=== PATIENT | male | born 1965 | race Caucasian/White ===

== ENCOUNTER 2017-03-21 00:44 | Inpatient (IN) | payer OTHER ==
[~2017-03-21] VITALS: Ht 172.7 cm; Wt 70.8 kg
[2017-03-21] VITALS (11 sets, daily range): BP systolic 126–155; BP diastolic 71–83; PULSE 62–90; RESP 16–22; TEMP 98.1–99.4; O2SAT 95–100
[2017-03-21] MEDS ORDERED: SODIUM CHLOR 0.9% 1000 ML INJ 1,000 ML IV ONE (01:45)
[2017-03-21 02:02] LABS: AUTOMATED NEUTROPHIL # 8.2 TH/MM3 (1.8-7.7); BASOPHIL % 0.3 % (0.0-2.0); EOSINOPHIL # 0.1 TH/MM3 (0-0.4); EOSINOPHIL % 0.7 % (0.0-4.0); HEMATOCRIT 41.9 % (39.0-51.0); HEMO FLAGS DIFF FINAL; LYMPH % 10.8 % (9.0-44.0); LYMPHOCYTE # 1.1 TH/MM3 (1.0-4.8); MEAN CELL VOLUME 88.9 FL (80.0-100.0); MEAN CORPUSCULAR HEMOGLOBIN 29.2 PG (27.0-34.0); MEAN CORPUSCULAR HGB CONC 32.8 % (32.0-36.0); MONO % 6.1 % (0.0-8.0); NEUT % 82.1 % (16.0-70.0); PLATELET COUNT 186 TH/MM3 (150-450); RED BLOOD COUNT 4.71 MIL/MM3 (4.50-5.90); RED CELL DISTRIBUTION WIDTH 13.8 % (11.6-17.2)
--- NOTE | 2017-03-21 02:05 | RADRPT ---
EXAM DATE/TIME: 03/21/2017 01:55 [facility] COMPARISON: No previous studies available for comparison. INDICATIONS : Syncope. Possible seizure. RADIATION DOSE: 40.22 CTDIvol (mGy) MEDICAL HISTORY : None SURGICAL HISTORY : None. ENCOUNTER: Initial ACUITY: 1 day PAIN SCALE: 0/10 LOCATION: cranial TECHNIQUE: Multiple contiguous axial images were obtained of the head. Using automated exposure control and adj ustment of the mA and/or kV according to patient size, radiation dose was kept as low as reasonably a chievable to obtain optimal diagnostic quality images. FINDINGS: There is no evidence for intracranial hemorrhage, mass effect, mass lesions, edema, or extra-axial fl uid collections. The visualized bony structures appear intact. The ventricles are normal size for t he patient's age. There are no signs of acute infarction for technique. CONCLUSION: Unremarkable study. Yifan Charles MD on March 21, 2017 at 2:02 Board Certified Radiologist. This report was verified electronically.
[2017-03-21 02:09] LABS: APTT (PATIENT) 22.4 SEC (24.3-30.1); PROTHROMBIN TIME - PATIENT 10.5 SEC (9.8-11.6)
[2017-03-21 02:16] LABS: ALT (GPT) 37 U/L (12-78); ANION GAP 12 MEQ/L (5-15); AST (GOT) 22 U/L (15-37); BICARBONATE 24.4 MEQ/L (21.0-32.0); BLOOD UREA NITROGEN 12 MG/DL (7-18); CHLORIDE 103 MEQ/L (98-107); GLOMERULAR FILTRATION RATE 81 ML/MIN (>89); MAGNESIUM 2.3 MG/DL (1.5-2.5); SODIUM (NA) 139 MEQ/L (136-145)
[2017-03-21 02:27] LABS: ALKALINE PHOSPHATASE 50 U/L (45-117); TOTAL BILIRUBIN ADULT 0.2 MG/DL (0.2-1.0)
[2017-03-21 02:31] LABS: CREATINE KINASE 92 U/L (39-308)
--- NOTE | 2017-03-21 02:31 | RADRPT ---
EXAM DATE/TIME: 03/21/2017 02:09 [facility] COMPARISON: No previous studies available for comparison. INDICATIONS : Cough and congestion. MEDICAL HISTORY : None. SURGICAL HISTORY : None. ENCOUNTER: Initial ACUITY: 1 day PAIN SCORE: 5/10 LOCATION: Bilateral chest FINDINGS: The lungs are clear without infiltrate, nodule, or mass. There is no appreciable pleural effusion fo r technique. Heart and mediastinum are unremarkable. CONCLUSION: No acute cardiopulmonary disease. Yifan Charles MD on March 21, 2017 at 2:29 Board Certified Radiologist. This report was verified electronically.
--- NOTE | 2017-03-21 02:49 | PD ---
HPI Chief Complaint: Seizure Time Seen by Provider: 01:34 Travel History International Travel<30 days: No Contact w/Intl Traveler<30days: No Traveled to known affect area: No History of Present Illness HPI The patient is a 51 year old male who presents to the [facility] emergency department with a history of being noted to have generalized clonic tonic seizure activity at 11:50 PM. The patient's significant other reports that she was awakened from sound sleep due to him making abnormal noises in the bed. When she tried to awaken him his eyes appear to be open and he was looking straight up but otherwise unresponsive and shaking. The patient was noted to have bleeding from his mouth and head that his lip. The patient denies having any loss of bowel or bladder control. The patient was confused when he became more awake and alert. He denies having any prior history of seizure activity. The significant other reports that it lasted for approximately 3 minutes. He denies being on any medications at home. He reports that he has a history of anxiety recently over the last 6 months. The patient denies any history of fever , cough, congestion, neck pain, chest pain, shortness of breath, abdominal pain , vomiting, diarrhea, urinary symptoms, or neurologic symptoms. [facility] Past Medical History Narrative Medical The patient's past medical history is significant for anxiety attacks intermittently reportedly for 6 months. He denies having a primary care physician. Medical History: Denies Significant Hx Immunizations Current: Yes Past Surgical History Narrative Surgical The patient's past surgical history is reportedly none. Surgical History: No Previous Surgery Social History Alcohol Use: Yes (3 x per week, 5 drinks.) Tobacco Use: No Substance Use: No Allergies-Medications (Allergen,Severity, Reaction): Coded Allergies: Latex (Verified Allergy, Intermediate, Rash, 01/31/12) Reported Meds & Prescriptions Reported Meds & Active Scripts Active No Active Prescriptions or Reported Medications Review of Systems Except as stated in HPI: all other systems reviewed are Neg General / Constitutional: No: Fever Eyes: No: Visual changes HENT: Positive: Other (bite tongue.), No: Headaches Cardiovascular: No: Chest Pain or Discomfort Respiratory: No: Shortness of Breath Gastrointestinal: No: Abdominal Pain Genitourinary: No: Dysuria Musculoskeletal: No: Pain Skin: No Rash Neurologic: Positive: Change in Mentation, Seizures, No: Weakness, Focal Abnormalities, Slurred Speech Psychiatric: Positive: Anxiety, No: Depression, Suicidal Ideations, Mood Disorder, Substance Abuse, Homicidal Ideation Endocrine: No: Polydipsia Hematologic/Lymphatic: No: Easy Bruising Physical Exam Narrative General: The patient is a well-developed well-nourished male, anxious appearing on examination. Head and Neck exam: Head is normocephalic atraumatic. Eyes: EOMI, pupils are equal round and reactive to light. Nose: Midline septum with pink mucous membranes Mouth: Dentition unremarkable. Moist mucus membranes. Posterior oropharynx is not erythematous. No tonsillar hypertrophy. Uvula midline. Airway patent. The patient on examination of the right lower lip is noted to have an area of abrasion and superficial laceration related to biting. Neck: No palpable lymphadenopathy. No nuchal rigidity. No thyromegaly. Cardiovascular: Regular rate and rhythm without murmurs, gallops, or rubs. Lungs: Clear to auscultation bilaterally. No wheezes, rhonchi, or rales. Abdomen: Soft, without tenderness to palpation in all 4 quadrants of the abdomen. No guarding, rebound, or rigidity. Normal bowel sounds are audible. No tenderness on palpation of McBurney's point Extremities: No clubbing, cyanosis, or edema. 2+ pulses in all 4 extremities. No calf tenderness on palpation. Back: No spinous process tenderness to palpation. No costovertebral angle tenderness to palpation. Neurologic Exam: Cranial nerves 2-12 were intact on exam. Strength is 5/5 in all 4 extremities. No sensory deficits noted. No tremulousness noted. Skin Exam: No rash noted. Data Data Last Documented VS Vital Signs Date Time Temp Pulse Resp B/P Pulse Ox O2 Delivery O2 Flow Rate FiO2 03/21/17 00:45 16 100 Room Air 03/21/17 00:45 98.3 81 132/74 Orders Electrocardiogram (03/21/17 01:40) Complete Blood Count With Diff (03/21/17 01:40) Comprehensive Metabolic Panel (03/21/17 01:40) Creatine Kinase (Cpk) (03/21/17 01:40) Ckmb (Isoenzyme) Profile (03/21/17 01:40) Troponin I (03/21/17 01:40) B-Type Natriuretic Peptide (03/21/17 01:40) Prothrombin Time / Inr (Pt) (03/21/17 01:40) Act Partial Throm Time (Ptt) (03/21/17 01:40) Lipase (03/21/17 01:40) Urinalysis - C+S If Indicated (03/21/17 01:40) Magnesium (Mg) (03/21/17 01:40) Chest, Single Ap (03/21/17 01:40) Ct Brain W/O Iv Contrast(Rout) (03/21/17 01:40) Iv Access Insert/Monitor (03/21/17 01:40) Ecg Monitoring (03/21/17 01:40) Oximetry (03/21/17 01:40) Drug Screen, Random Urine (03/21/17 01:40) Alcohol (Ethanol) (03/21/17 01:40) Sodium Chlor 0.9% 1000 Ml Inj (Ns 1000 M (03/21/17 01:45) Admit Order (Ed Use Only) (03/21/17 04:51) Consult Neurology (03/21/17 ) Director Apparel / Telemetry GERARD.Q8H (03/21/17 04:51) Vital Signs (Adult) Q4H (03/21/17 04:51) Diet Regular Basic (03/21/17 Breakfast) Activity Oob With Assistance (03/21/17 04:51) Complete Blood Count With Diff (03/22/17 06:00) Basic Metabolic Panel (Bmp) (03/22/17 06:00) ^ Saline Lock (03/21/17 04:51) Resp Oxygen Pranav C Titrat 1-4 L (03/21/17 ) Notify Dr: Other (03/21/17 04:51) Acetaminophen (Tylenol) (03/21/17 05:00) Neuro Checks . ORDERED (03/21/17 04:51) Sodium Chloride 0.9% Flush (Ns Flush) (03/21/17 09:00) Sodium Chloride 0.9% Flush (Ns Flush) (03/21/17 05:00) ^ Seizure Precautions (03/21/17 04:54) Labs Laboratory Tests Test 03/21/17 01:55 White Blood Count 10.0 TH/MM3 Red Blood Count 4.71 MIL/MM3 Hemoglobin 13.8 GM/DL Hematocrit 41.9 % Mean Corpuscular Volume 88.9 FL Mean Corpuscular Hemoglobin 29.2 PG Mean Corpuscular Hemoglobin 32.8 % Concent Red Cell Distribution Width 13.8 % Platelet Count 186 TH/MM3 Mean Platelet Volume 9.6 FL Neutrophils (%) (Auto) 82.1 % Lymphocytes (%) (Auto) 10.8 % Monocytes (%) (Auto) 6.1 % Eosinophils (%) (Auto) 0.7 % Basophils (%) (Auto) 0.3 % Neutrophils # (Auto) 8.2 TH/MM3 Lymphocytes # (Auto) 1.1 TH/MM3 Monocytes # (Auto) 0.6 TH/MM3 Eosinophils # (Auto) 0.1 TH/MM3 Basophils # (Auto) 0.0 TH/MM3 CBC Comment DIFF FINAL Differential Comment Prothrombin Time 10.5 SEC Prothromb Time International 1.0 RATIO Ratio Activated Partial 22.4 SEC Thromboplast Time Sodium Level 139 MEQ/L Potassium Level 4.0 MEQ/L Chloride Level 103 MEQ/L Carbon Dioxide Level 24.4 MEQ/L Anion Gap 12 MEQ/L Blood Urea Nitrogen 12 MG/DL Creatinine 0.98 MG/DL Estimat Glomerular Filtration 81 ML/MIN Rate Random Glucose 121 MG/DL Calcium Level 9.6 MG/DL Magnesium Level 2.3 MG/DL Total Bilirubin 0.2 MG/DL Aspartate Amino Transf 22 U/L (AST/SGOT) Alanine Aminotransferase 37 U/L (ALT/SGPT) Alkaline Phosphatase 50 U/L Total Creatine Kinase 92 U/L Troponin I LESS THAN 0.02 NG/ML B-Type Natriuretic Peptide 40 PG/ML Total Protein 7.5 GM/DL Albumin 4.2 GM/DL Lipase 181 U/L Ethyl Alcohol Level LESS THAN 3 MG/DL MDM Medical Decision Making Medical Screen Exam Complete: Yes Emergency Medical Condition: Yes Medical Record Reviewed: Yes Interpretation(s) Last Impressions Head CT 03/21/17139 Signed Impressions: Service Date/Time: Tuesday, March 21, 2017 01:55 - CONCLUSION: Unremarkable study. Yifan Charles MD Chest X-Ray 03/21/17139 Signed Impressions: Service Date/Time: Tuesday, March 21, 2017 02:09 - CONCLUSION: No acute cardiopulmonary disease. Yifan Charles MD Differential Diagnosis Seizure activity, versus syncopal event, versus withdrawal syndrome Narrative Course During the course of the patients emergency department visit, the patients history, examination, and differential diagnosis were reviewed with the patient. The patient had IV access obtained and blood work sent for analysis. The patient states on a diagnostic cardiac sonographer with oximetry and blood pressure monitoring. An EKG was done on arrival. The patient's EKG shows a sinus rhythm heart rate of 65, no acute ST segment elevation or depression. T waves are inverted in lead 3, V1. The patient was initially provided normal saline 1 L IV fluid bolus. The patients laboratory studies were reviewed and remarkable for a white count of 10, hemoglobin 13.8, platelets 186 with 82.1 neutrophils, CMP is remarkable for glucose of 121, CPK 92, troponin I less than 0.02, BNP is 40, lipase 181, PT 10.5, PTT 22.4, alcohol level less than 3. Radiology studies were reviewed and remarkable for a chest x-ray that shows no acute abnormality. CT scan of the brain shows no acute abnormality. The patients results were discussed with the patient, including the plan of care. I explained that further testing and/ or monitoring is indicated based on the patients history, examination, and/ or laboratory findings. Therefore, I recommended admission for additional evaluation. The patient expressed understanding and was agreeable with this plan. The patient was admitted to the hospital in stable condition and sent to a bed under the care of the [facility]. Physician Communication Physician Communication The patient's case was discussed with Dr. Wang who did agree to admit the patient to Dr. Juarez service. Diagnosis Primary Impression: Seizure Admitting Information Admitting Physician Requests: Observation Scripts No Active Prescriptions or Reported Meds Sheila Méndez MD March 21, 2017 02:49
[2017-03-21] MEDS ORDERED: SODIUM CHLORIDE 0.9% FLUSH 10 ML FLUSH IVF PRN (05:00)
[2017-03-21] MEDS ORDERED: ACETAMINOPHEN 325 MG TAB PO PRN ×2 (05:00→09:45)
[2017-03-21] MEDS ORDERED: LORazepam 2 MG/ML VIAL IV ONE (09:00)
--- NOTE | 2017-03-21 09:28 | HHI.HP ---
HPI Service [facility] Hospitalists Primary Care Physician Dr. 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 SKIN: No rashes, ecchymoses or lesions. Cool and dry. HEAD: Atraumatic. Normocephalic. No temporal or scalp tenderness. EYES: Pupils equal round and reactive. Extraocular motions intact. No scleral icterus. No injection or drainage. ENT: Nose without bleeding, purulent drainage or septal hematoma. Throat without erythema, tonsillar hypertrophy or exudate. Uvula midline. Airway patent. NECK: Trachea midline. No JVD or lymphadenopathy. Supple, nontender, no meningeal signs. CARDIOVASCULAR: Regular rate and rhythm without murmurs, gallops, or rubs. RESPIRATORY: Clear to auscultation. Breath sounds equal bilaterally. No wheezes , rales, or rhonchi. GASTROINTESTINAL: Abdomen soft, non-tender, nondistended. No hepato-splenomegaly , or palpable masses. No guarding. MUSCULOSKELETAL: Extremities without clubbing, cyanosis, or edema. No joint tenderness, effusion, or edema noted. No calf tenderness. Negative Homans sign bilaterally. NEUROLOGICAL: Awake and alert. Cranial nerves II through XII intact. Motor and sensory grossly within normal limits. Five out of 5 muscle strength in all muscle groups. Normal speech. Laboratory Laboratory Tests Test 03/21/17 01:55 White Blood Count 10.0 Red Blood Count 4.71 Hemoglobin 13.8 Hematocrit 41.9 Mean Corpuscular Volume 88.9 Mean Corpuscular Hemoglobin 29.2 Mean Corpuscular Hemoglobin 32.8 Concent Red Cell Distribution Width 13.8 Platelet Count 186 Mean Platelet Volume 9.6 Neutrophils (%) (Auto) 82.1 Lymphocytes (%) (Auto) 10.8 Monocytes (%) (Auto) 6.1 Eosinophils (%) (Auto) 0.7 Basophils (%) (Auto) 0.3 Neutrophils # (Auto) 8.2 Lymphocytes # (Auto) 1.1 Monocytes # (Auto) 0.6 Eosinophils # (Auto) 0.1 Basophils # (Auto) 0.0 CBC Comment DIFF FINAL Differential Comment Prothrombin Time 10.5 Prothromb Time International 1.0 Ratio Activated Partial 22.4 Thromboplast Time Sodium Level 139 Potassium Level 4.0 Chloride Level 103 Carbon Dioxide Level 24.4 Anion Gap 12 Blood Urea Nitrogen 12 Creatinine 0.98 Estimat Glomerular Filtration 81 Rate Random Glucose 121 Calcium Level 9.6 Magnesium Level 2.3 Total Bilirubin 0.2 Aspartate Amino Transf 22 (AST/SGOT) Alanine Aminotransferase 37 (ALT/SGPT) Alkaline Phosphatase 50 Total Creatine Kinase 92 Troponin I LESS THAN 0.02 B-Type Natriuretic Peptide 40 Total Protein 7.5 Albumin 4.2 Lipase 181 Ethyl Alcohol Level LESS THAN 3 Result Diagram: 03/21/17 0155 03/21/17 0155 Physician Certification Order for Inpatient Services The services are ordered in accordance with Medicare regulations or non- Medicare payer requirements, as applicable. In the case of services not specified as inpatient-only, they are appropriately provided as inpatient services in accordance with the 2-midnight benchmark. days is the estimated time the patient will need to remain in the hospital, assuming treatment plan goals are met and no additional complications. Sandra Gardiner March 21, 2017 09:28
[2017-03-21] MEDS ORDERED: MAGNESIUM HYDROXIDE SUSP 30 ML CUP PO PRN (09:45)
[2017-03-21] MEDS ORDERED: SODIUM CHLORIDE 0.9% FLUSH 10 ML FLUSH IV FLUSH PRN (09:45)
[2017-03-21] MEDS ORDERED: NALOXONE HCL 0.4 MG/ML AMP IV PRN (09:45)
[2017-03-21 09:48] LABS: BLOOD, URINE SMALL (NEG); COMMENT (UR) CULT NOT INDICATED; CULTURE IF INDICATED CULT NOT INDICATED; GLUCOSE,URINE NEG (NEG); HYALINE CAST, URINE 1 /lpf (RARE); KETONE, URINE TRACE mg/dL (NEG); NITRITE,URINE NEG (NEG); URINE COLOR YELLOW (YELLW/STRAW)
[2017-03-21] MEDS ORDERED: LORazepam 2 MG/ML VIAL IV PUSH PRN ×2 (10:00)
--- NOTE | 2017-03-21 10:14 | HHI.HP ---
HPI Service [facility] Hospitalists Primary Care Physician No Primary Care Physician Admission Diagnosis Seizure Chief Complaint: seizure Travel History International Travel<30 Days: No Contact w/Intl Traveler <30 Da: No Traveled to Known Affected Are: No History of Present Illness Patient is a 51-year-old male with [facility] or [facility] EHR. Patient presented to [place] ER yesterday evening with complaint of new onset seizure activity. Patient's history is gathered from review of ER records. Patient is a poor historian. I was unable to reach his spouse. Per ER report, spouse was awoken from sleep by patient making abnormal noises in bed. Patient was unresponsive and shaking. Per report patient had bleeding from his lip. There was no loss of bowel or bladder control. Patient had confusion following this event. Patient has no prior history of seizure activity. Episode lasted approximately 3 minutes. Possibly some difficulties with anxiety for the last 6 months.- Review of Systems ROS Limitations: Altered Mental Status Constitutional: DENIES: Diaphoretic episodes, Fatigue, Fever, Weight gain, Weight loss, Chills, Dizziness, Change in appetite, Night Sweats Endocrine: DENIES: Heat/cold intolerance, Polydipsia, Polyuria, Polyphagia Eyes: DENIES: Blurred vision, Diplopia, Eye inflammation, Eye pain, Vision loss , Photosensitivity, Double Vision Ears, nose, mouth, throat: DENIES: Tinnitus, Hearing loss, Vertigo, Nasal discharge, Oral lesions, Throat pain, Hoarseness, Ear Pain, Running Nose, Epistaxis, Sinus Pain, Toothache, Odynophagia Respiratory: DENIES: Apneas, Cough, Snoring, Wheezing, Hemoptysis, Sputum production, Shortness of breath Cardiovascular: DENIES: Chest pain, Palpitations, Syncope, Dyspnea on Exertion , PND, Lower Extremity Edema, Orthopnea, Claudication Gastrointestinal: DENIES: Abdominal pain, Black stools, Bloody stools, BRB per rectum, Constipation, Diarrhea, GERD, Nausea, Reflux, Vomiting, Difficulty Swallowing, Anorexia Genitourinary: DENIES: Urinary frequency, Urinary incontinence, Urgency, Hematuria, Dysuria, Nocturia Musculoskeletal: DENIES: Joint pain, Muscle aches, Stiffness, Joint Swelling, Back pain, Neck pain Integumentary: DENIES: Abnormal pigmentation, Nail changes, Pruritus, Rash Hematologic/lymphatic: DENIES: Bruising, Lymphadenopathy Immunologic/allergic: DENIES: Eczema, Urticaria Neurologic: COMPLAINS OF: Seizures, DENIES: Abnormal gait, Headache, Localized weakness, Paresthesias, Speech Problems, Tremor, Poor Balance Psychiatric: DENIES: Anxiety, Confusion, Mood changes, Depression, Hallucinations, Agitation, Suicidal Ideation, Homicidal Ideation, Delusions, History of Bipolar, History of Schizophrenia Past Family Social History Past Medical History Hx of nephrolithiasis Past Surgical History None reported Reported Medications Reported Meds & Active Scripts Active No Active Prescriptions or Reported Medications Allergies: Coded Allergies: Latex (Verified Allergy, Intermediate, Rash, 01/31/12) Family History Father with HTN Mother: from ovarian cancer in early 40's No siblings Social History Quit smoking 5 years ago (15 years, 1/2 pack per day) 2 drinks every other day 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 SKIN: No rashes, ecchymoses or lesions. Cool and dry. HEAD: Atraumatic. Normocephalic. No temporal or scalp tenderness. EYES: Pupils equal round and reactive. Extraocular motions intact. No scleral icterus. No injection or drainage. ENT: Nose without bleeding, purulent drainage or septal hematoma. Throat without erythema, tonsillar hypertrophy or exudate. Uvula midline. Airway patent. NECK: Trachea midline. No JVD or lymphadenopathy. Supple, nontender, no meningeal signs. CARDIOVASCULAR: Regular rate and rhythm without murmurs, gallops, or rubs. RESPIRATORY: Clear to auscultation. Breath sounds equal bilaterally. No wheezes , rales, or rhonchi. GASTROINTESTINAL: Abdomen soft, non-tender, nondistended. No hepato-splenomegaly , or palpable masses. No guarding. MUSCULOSKELETAL: Extremities without clubbing, cyanosis, or edema. No joint tenderness, effusion, or edema noted. No calf tenderness. Negative Homans sign bilaterally. NEUROLOGICAL: Awake and alert. Cranial nerves II through XII intact. Motor and sensory grossly within normal limits. Five out of 5 muscle strength in all muscle groups. Normal speech. Laboratory Laboratory Tests Test 03/21/17 03/21/17 01:55 09:08 White Blood Count 10.0 Red Blood Count 4.71 Hemoglobin 13.8 Hematocrit 41.9 Mean Corpuscular Volume 88.9 Mean Corpuscular Hemoglobin 29.2 Mean Corpuscular Hemoglobin 32.8 Concent Red Cell Distribution Width 13.8 Platelet Count 186 Mean Platelet Volume 9.6 Neutrophils (%) (Auto) 82.1 Lymphocytes (%) (Auto) 10.8 Monocytes (%) (Auto) 6.1 Eosinophils (%) (Auto) 0.7 Basophils (%) (Auto) 0.3 Neutrophils # (Auto) 8.2 Lymphocytes # (Auto) 1.1 Monocytes # (Auto) 0.6 Eosinophils # (Auto) 0.1 Basophils # (Auto) 0.0 CBC Comment DIFF FINAL Differential Comment Prothrombin Time 10.5 Prothromb Time International 1.0 Ratio Activated Partial 22.4 Thromboplast Time Sodium Level 139 Potassium Level 4.0 Chloride Level 103 Carbon Dioxide Level 24.4 Anion Gap 12 Blood Urea Nitrogen 12 Creatinine 0.98 Estimat Glomerular Filtration 81 Rate Random Glucose 121 Calcium Level 9.6 Magnesium Level 2.3 Total Bilirubin 0.2 Aspartate Amino Transf 22 (AST/SGOT) Alanine Aminotransferase 37 (ALT/SGPT) Alkaline Phosphatase 50 Total Creatine Kinase 92 Troponin I LESS THAN 0.02 B-Type Natriuretic Peptide 40 Total Protein 7.5 Albumin 4.2 Lipase 181 Ethyl Alcohol Level LESS THAN 3 Urine Color YELLOW Urine Turbidity CLEAR Urine pH 6.0 Urine Specific [place] 1.013 Urine Protein 30 Urine Glucose (UA) NEG Urine Ketones TRACE Urine Occult Blood SMALL Urine Nitrite NEG Urine Bilirubin NEG Urine Urobilinogen LESS THAN 2.0 Urine Leukocyte Esterase NEG Urine RBC 1 Urine WBC 2 Urine Hyaline Casts 1 Microscopic Urinalysis Comment CULT NOT INDICATED Result Diagram: 03/21/1715403/21/17154 Septic Shock Reassessment Heart: Regular rate and rhythm Lungs: Clear Skin: Warm Peripheral Pulses: Bounding Right Radial Bounding Left Radial Bounding Right Popliteal Bounding Left Popliteal Bounding Right Dorsalis Pedis Bounding Left Dorsalis Pedis Bounding Right Posterior Tibial Bounding Left Posterior Tibial Capillary Refill: Brisk Assessment and Plan Problem List: (1) Seizure Status: Acute Plan: - suspect underlying etoh abuse - pt appears agitated this AM - await Neurology consultation - obtain MRI brain - obtain EEG - obtain TSH, free T4, b12, folate, rpr, CRP - ionized calcium, LFTs, drug screen - prolactin, phorphobilinogen Physician Certification 2 Midnight Certification Type: Admission for Inpatient Services Order for Inpatient Services The services are ordered in accordance with Medicare regulations or non- Medicare payer requirements, as applicable. In the case of services not specified as inpatient-only, they are appropriately provided as inpatient services in accordance with the 2-midnight benchmark. Estimated LOS (days): 3 3 days is the estimated time the patient will need to remain in the hospital, assuming treatment plan goals are met and no additional complications. Post-Hospital Plan: Home Reed Juarez DO March 21, 2017 10:14
[2017-03-21 10:27] LABS: AMPHETAMINE, URINE NEG (NEG); BARBITURATES, URINE NEG (NEG); COCAINE, URINE NEG (NEG)
--- NOTE | 2017-03-21 11:18 | MB ---
cc: DEIDRA JC M.D. DATE OF CONSULTATION: 03/21/2017 HISTORY OF PRESENT ILLNESS He is a 51-year-old seen in neurological consultation in regards to a new onset seizures. The patient apparently does not take any medication and has been healthy but woke up in the middle of the night with a seizure. Actually the patient's apparently woke up with the patient having a typical grand mal seizure that lasted 3 minutes or so. The patient came to the hospital and has no recollection of this. He has become agitated and actually even required restraints but there has been no seizure recurrence. He describes that he had a couple of beers the day before yesterday, no alcohol yesterday. He does not use any painkiller medications and denies drug use. He takes occasional Advil and no prescription medications. The patient denies neurologic history or family history of seizures. NEUROLOGIC EXAM Neurological exam was largely benign at bedside. He is mildly anxious, showing some signs of possible withdrawal with some mild restlessness and agitation in bed and asked for the restraints to be removed. The pupils were equal, mildly reactive. Ocular movements and visual muniz full. The neck is completely supple. He has evidence of tongue injury. He has good general counselor and good strength in all four limbs on the bedside exam. Reflexes 1+. Plantar response were flexor. LABORATORY DATA The laboratory data includes normal CBC. Urine toxicology positive for cannabinoids, otherwise negative. Chemistry with glucose 121, otherwise normal. IMAGING STUDIES The CT brain was normal and MRI is pending. ASSESSMENT New onset seizure during sleep. Cause is uncertain. The only remarkable finding is the positive cannabinoids on the urine toxicology, but the value of this is uncertain. The patient had alcohol and states only 3 beers the day before yesterday and there is some suggestion of possible withdrawal syndrome. He was given lorazepam. He is to have MRI brain and EEG and will continue the vitamins and thiamine. Will follow on these and determine the need for long-term anticonvulsant medications. I will follow the neurological course. Thank you for asking us to assist in his care. Deidra Jc MD OFC/TLL /10:57 AM /11:10 AM
[2017-03-21] MEDS ORDERED: chlordiazePOXIDE 25 MG CAP PO PRN (12:00)
[2017-03-21] MEDS ORDERED: levETIRAcetam 1000 MG INJ 100 ML IV ONE (12:15)
[2017-03-21] MEDS: FOLIC ACID 1 MG TAB PO SCH (12:27)
[2017-03-21] MEDS: SODIUM CHLORIDE 0.9% FLUSH 10 ML FLUSH IV FLUSH SCH ×2 (12:27→21:11)
[2017-03-21] MEDS: THIAMINE HCL 100 MG TAB PO SCH (12:27)
[2017-03-21] MEDS: MULTIVITAMIN TAB PO SCH (12:27)
[2017-03-21] MEDS ORDERED: levETIRAcetam INJ 1,500 MG in SODIUM CHLORIDE 0.9% INJ 100 ML IV ONE (13:00)
--- NOTE | 2017-03-21 13:04 | EKG ---
Date Performed: 03/21/2017 Time Performed: 01:50:45 PTAGE: 51 years EKG: Sinus rhythm NORMAL ECG NO PREVIOUS TRACING DOCTOR: Kendrick Méndez Interpretating Date/Time 03/21/2017 13:01:46
[2017-03-21 13:18] LABS: ALKALINE PHOSPHATASE 54 U/L (45-117); ALT (GPT) 43 U/L (12-78); AST (GOT) 21 U/L (15-37); FREE T4 1.01 NG/DL (0.76-1.46); INDIRECT BILIRUBIN 0.4 MG/DL (0.0-0.8); MAGNESIUM 2.5 MG/DL (1.5-2.5); TOTAL BILIRUBIN ADULT 0.5 MG/DL (0.2-1.0)
[2017-03-21] MEDS: IBUPROFEN 400 MG TAB PO PRN ×2 (13:28→21:11)
[2017-03-21] MEDS ORDERED: GADODIAMIDE PF 287 MG/ML 5 ML VIAL (for RAD MRI) IV ONE (14:04)
[2017-03-21 14:58] LABS: RAPID PLASMA REAGIN SCREEN NON-REACTIVE (NON-REACTVE)
--- NOTE | 2017-03-21 16:20 | RADRPT ---
EXAM DATE/TIME: 03/21/2017 13:46 [facility] COMPARISON: CT BRAIN W/O CONTRAST, March 21, 2017, 1:55. INDICATIONS : Seizures. CONTRAST: 15 cc Omniscan (gadodiamide) IV MEDICAL HISTORY : None. SURGICAL HISTORY : Cyst removed from behind left ear. ENCOUNTER: Initial ACUITY: 2 day PAIN SCORE: 0/10 LOCATION: head TECHNIQUE: Multiplanar, multisequence MRI of the brain was performed both prior to and following the administrat ion of paramagnetic contrast. FINDINGS: CEREBRUM: The ventricles are normal for age. No evidence of midline shift, mass lesion, hemorrhage or acute in farction. No extraaxial fluid collections are seen. The pituitary gland and suprasellar cistern are normal in configuration. WHITE MATTER: No significant signal abnormalities are seen in the white matter. POSTERIOR FOSSA: The cerebellum and brainstem are intact. The 4th ventricle is midline. The cerebellopontine angle is unremarkable. The cerebellar tonsils are normal in position. DIFFUSION IMAGING: No focal areas of restricted diffusion are seen. No evidence of acute infarction. EXTRACRANIAL: The visualized portions of the orbits and paranasal sinuses are unremarkable. POST-CONTRAST: No abnormal areas of parenchymal or dural enhancement. No evidence of blood-brain barrier breakdown. CONCLUSION: Negative exam. Pop Hernandez MD on March 21, 2017 at 16:15 Board Certified Radiologist. This report was verified electronically.
[2017-03-21] MEDS ORDERED: SODIUM CHLORIDE 0.9% FLUSH 10 ML FLUSH IV FLUSH SCH (21:00)
[2017-03-21] MEDS: levETIRAcetam 500 MG TAB PO SCH (21:09)
[2017-03-22] VITALS: BP 127/73; PULSE 55; RESP 16; TEMP 98.6; O2SAT 99
[2017-03-22 00:32] VITALS: PULSE 60
[2017-03-22 04:00] VITALS: BP 151/68; PULSE 59; RESP 18; TEMP 98.4; O2SAT 99
--- NOTE | 2017-03-22 05:10 | MG ---
cc: LITO RIVERA Lab No: Date: 03/21/2017 Age: Sex: M Race: REASON FOR PROCEDURE Seizure. [place] lips. Confused. A 51-year-old with history of anxiety. MEDICATIONS Ativan. FINDINGS Diffuse beta rhythms are noted. The recording overall is synchronous and symmetric. Small sharp, slow wave complexes seen at epoch 19 bifrontally predominant. Photic stimulation is performed without significant posterior driving. Hyperventilation is performed without significant change in the background. Overall the recording is synchronous and symmetric with normal alpha waves and beta waves throughout. The patient then falls asleep and I do see a very small sharp, slow wave complex at epoch 147 right temporal frontal head region on the transverse montage. Some very tiny sharps are seen with sleep, although cannot say for sure that these are not BETS. He then has some sleep spindles which was symmetric. He reaches Stage II sleep. He snores slightly, IMPRESSION A few small sharps. One sharp slow wave complex most prominent at epoch 19. No prolonged seizures were noted. No major hemisphere asymmetries are seen. The sharps were bilateral, sometimes more on the right, sometimes seen on the left, sometimes bifrontal with a very small amplitude. Clinical correlation is needed. MD ANOOP Barahona/MARIANO /7:37 PM /5:04 AM
[2017-03-22] MEDS: IBUPROFEN 400 MG TAB PO PRN (07:06)
--- NOTE | 2017-03-22 07:17 | HHI.PR ---
Review/Management Daily Summary 03/22 doing well this am exam normal, now fully awake and cooperative, no agitation at all, probably altered mentation yesterday secondary to ongoing seizures intermitently! spoke to RN, no problems overnight I saw his eeg and believe there was a seizure during eeg, right temporal predominantly and tech described lip smacking and mouth movements at the time keppra started, continue 1000 mg bid and ok neuro to go home with office f/u in 2 weeks, will follow eeg i advised him not to drive for at least 6 months and he understands this well Subjective Subjective Comments During EEG appears to have had a seizure No headache Active Medications Current Medications Medications (Trade) Dose Ordered Sig/Shaheed Route Start Time Stop Time Status Last Admin (Tylenol) 650 mg Q4H PRN PO 03/21/17 05:00 (NS Flush) 2 ml BID IV FLUSH 03/21/17 09:00 03/21/17 21:11 (NS Flush) 2 ml UNSCH PRN IVF 03/21/17 05:00 (Milk Of Magnesia Liq) 30 ml Q12H PRN PO 03/21/17 09:45 (Narcan Inj) 0.4 mg UNSCH PRN IV 03/21/17 09:45 (Ativan Inj) 1 mg Q6H PRN IV PUSH 03/21/17 10:00 (Ativan Inj) 1 mg Q15M PRN IV PUSH 03/21/17 10:00 (Theragran) 1 tab DAILY PO 03/21/17 10:30 03/21/17 12:27 (Vitamin B1) 100 mg DAILY PO 03/21/17 10:30 03/21/17 12:27 (Folate) 1 mg DAILY PO 03/21/17 10:30 03/21/17 12:27 (Keppra) 1,000 mg BID PO 03/21/17 21:00 03/21/17 21:09 (Librium) 25 mg TID PRN PO 03/21/17 12:00 (Motrin) 400 mg Q6H PRN PO 03/21/17 13:00 03/22/17 07:06 (Protonix) 20 mg DAILY PO 03/22/17 09:00 Allergies Allergies Coded Allergies Latex (Verified Allergy, Intermediate, Rash, 01/31/12) Exam I&O / VS 03/21/17 03/21/17 03/22/17 15:00 23:00 07:00 Intake Total 120 ml Output Total 400 ml Balance -400 ml 120 ml Intake Oral 120 ml Output Urine Total 400 ml # Voids 0 # Bowel Movements 0 Vital Signs Date Time Temp Pulse Resp B/P Pulse Ox O2 Delivery O2 Flow Rate FiO2 03/22/17 04:00 98.4 59 18 151/68 99 03/22/17 04:00 Room Air 03/22/17 00:32 60 03/22/17 00:00 Room Air 03/22/17 00:00 98.6 55 16 127/73 99 03/21/17 23:35 98.1 65 17 128/73 98 03/21/17 23:35 Room Air 03/21/17 21:02 98 03/21/17 19:58 99.1 70 18 126/72 98 03/21/17 18:19 98.4 03/21/17 15:20 99.4 62 18 136/72 99 03/21/17 11:40 99.0 67 22 132/77 97 03/21/17 08:45 90 18 155/83 98 03/21/17 08:10 98.9 66 18 130/73 99 03/21/17 07:14 98.4 64 20 155/71 96 Room Air Objective Radiology Results Last [address] 03/21/17 014 Signed Impressions: Service Date/Time: Tuesday, March 21, 2017 01:55 - CONCLUSION: Unremarkable study. Yifan Charles MD Chest X-Ray 03/21/17 014 Signed Impressions: Service Date/Time: Tuesday, March 21, 2017 02:09 - CONCLUSION: No acute cardiopulmonary disease. Yifan Charles MD Brain MRI 03/21/17 0000 Signed Impressions: Service Date/Time: Tuesday, March 21, 2017 13:46 - CONCLUSION: Negative exam. Pop Hernandez MD Micro and Labs Laboratory Tests Test 03/21/17 03/21/17 09:08 12:00 Urine Color YELLOW Urine Turbidity CLEAR Urine pH 6.0 Urine Specific [place] 1.013 Urine Protein 30 Urine Glucose (UA) NEG Urine Ketones TRACE Urine Occult Blood SMALL Urine Nitrite NEG Urine Bilirubin NEG Urine Urobilinogen LESS THAN 2.0 Urine Leukocyte Esterase NEG Urine RBC 1 Urine WBC 2 Urine Hyaline Casts 1 Microscopic Urinalysis Comment CULT NOT INDICATED Urine Opiates Screen NEG Urine Barbiturates Screen NEG Urine Amphetamines Screen NEG Urine Benzodiazepines Screen NEG Urine Cocaine Screen NEG Urine Cannabinoids Screen POS Serum Osmolality 298 Magnesium Level 2.5 Total Bilirubin 0.5 Direct Bilirubin 0.1 Indirect Bilirubin 0.4 Aspartate Amino Transf 21 (AST/SGOT) Alanine Aminotransferase 43 (ALT/SGPT) Alkaline Phosphatase 54 Ammonia 18 C-Reactive Protein LESS THAN 0.29 Total Protein 7.6 Albumin 4.6 Vitamin B12 Level 607 Folate 19.6 Free Thyroxine 1.01 Thyroid Stimulating Hormone 1.640 3rd Gen Rapid Plasma Reagin NON-REACTIVE Prolactin 10.3 Adelso Mccormack MD March 22, 2017 07:17
[2017-03-22] MEDS: levETIRAcetam 500 MG TAB PO SCH (07:41)
[2017-03-22] MEDS: THIAMINE HCL 100 MG TAB PO SCH (07:41)
[2017-03-22] MEDS: FOLIC ACID 1 MG TAB PO SCH (07:41)
[2017-03-22] MEDS: MULTIVITAMIN TAB PO SCH (07:42)
[2017-03-22] MEDS: SODIUM CHLORIDE 0.9% FLUSH 10 ML FLUSH IV FLUSH SCH (07:43)
[2017-03-22 07:53] VITALS: PULSE 61
[2017-03-22 08:00] VITALS: BP 125/73; PULSE 59; RESP 18; TEMP 98.2; O2SAT 98
[2017-03-22 08:57] LABS: AUTOMATED NEUTROPHIL # 4.6 TH/MM3 (1.8-7.7); BASOPHIL % 0.5 % (0.0-2.0); EOSINOPHIL # 0.1 TH/MM3 (0-0.4); EOSINOPHIL % 1.6 % (0.0-4.0); HEMATOCRIT 41.6 % (39.0-51.0); HEMO FLAGS DIFF FINAL; LYMPH % 23.6 % (9.0-44.0); LYMPHOCYTE # 1.6 TH/MM3 (1.0-4.8); MEAN CELL VOLUME 88.3 FL (80.0-100.0); MONO % 7.2 % (0.0-8.0); NEUT % 67.1 % (16.0-70.0); PLATELET COUNT 173 TH/MM3 (150-450); RED BLOOD COUNT 4.71 MIL/MM3 (4.50-5.90); RED CELL DISTRIBUTION WIDTH 13.9 % (11.6-17.2); WHITE BLOOD COUNT 6.9 TH/MM3 (4.0-11.0)
[2017-03-22] MEDS ORDERED: PANTOPRAZOLE SOD 20 MG DELAYED RELEASE TAB PO SCH (09:00)
[2017-03-22 09:18] LABS: BICARBONATE 29.4 MEQ/L (21.0-32.0); POTASSIUM 3.5 MEQ/L (3.5-5.1)
[2017-03-22] MEDS ORDERED: THERTAB15 PO (11:47)
[2017-03-22] MEDS ORDERED: LEVE500 PO (11:47)
[2017-03-22] MEDS ORDERED: FOLI1TAB4 PO (11:47)
[2017-03-22] MEDS ORDERED: VITA100T2 PO (11:47)
--- NOTE | 2017-03-22 11:49 | HHI.DCPOC ---
Discharge Care Plan Diagnosis: (1) Seizure (2) Alcohol use Goals to Promote Your Health - Followup with Neurology, Dr. Mccormack in 1 month, call for an appt. - No driving for 6 months. - No swimming or submerging in water/bathtub without some supervision. - Followup with PCP, Dr. Castro, is scheduled on April 04 at 1:00pm - Followup with [facility] in 1 week for alcohol abuse counselling, call for an appt. Directions to Meet Your Goals Take your medications as prescribed Follow your dietary instruction Follow activity as directed Keep your appointments as scheduled Take your immunizations and boosters as scheduled If your symptoms worsen call your PCP, if no PCP go to Urgent Care Center or Emergency Room Smoking is Dangerous to Your Health. Avoid second hand smoke Call the 24-hour hour crisis hotline for domestic abuse at Sandra Gardiner March 22, 2017 11:49 Reed Juarez DO March 25, 2017 22:43
--- NOTE | 2017-03-22 11:57 | HHI.PR ---
Subjective Remarks Pt feeling better today Not as agitated or anxious Pt does want to go home today Pts father is present at the time of examination and does express concerns about the pts alcohol use and states that the pt used to have a problem with abusing narcotic pills. Objective Vitals Vital Signs Date Time Temp Pulse Resp B/P Pulse Ox O2 Delivery O2 Flow Rate FiO2 03/22/17 08:00 Room Air 03/22/17 08:00 98.2 59 18 125/73 98 03/22/17 07:53 61 03/22/17 04:00 98.4 59 18 151/68 99 03/22/17 04:00 Room Air 03/22/17 00:32 60 03/22/17 00:00 Room Air 03/22/17 00:00 98.6 55 16 127/73 99 03/21/17 23:35 98.1 65 17 128/73 98 03/21/17 23:35 Room Air 03/21/17 21:02 98 03/21/17 19:58 99.1 70 18 126/72 98 03/21/17 18:19 98.4 03/21/17 15:20 99.4 62 18 136/72 99 03/21/17 03/21/17 03/22/17 15:00 23:00 07:00 Intake Total 120 ml Output Total 400 ml Balance -400 ml 120 ml Intake Oral 120 ml Output Urine Total 400 ml # Voids 0 # Bowel Movements 0 Result Diagram: 03/22/17 0726 03/22/17 0726 Other Results Laboratory Tests Test 03/21/17 03/21/17 03/21/17 03/22/17 01:55 09:08 12:00 07:26 White Blood Count 10.0 TH/MM3 6.9 TH/MM3 Red Blood Count 4.71 MIL/MM3 4.71 MIL/MM3 Hemoglobin 13.8 GM/DL 14.2 GM/DL Hematocrit 41.9 % 41.6 % Mean Corpuscular Volume 88.9 FL 88.3 FL Mean Corpuscular Hemoglobin 29.2 PG 30.0 PG Mean Corpuscular Hemoglobin 32.8 % 34.0 % Concent Red Cell Distribution Width 13.8 % 13.9 % Platelet Count 186 TH/MM3 173 TH/MM3 Mean Platelet Volume 9.6 FL 10.2 FL Neutrophils (%) (Auto) 82.1 % 67.1 % Lymphocytes (%) (Auto) 10.8 % 23.6 % Monocytes (%) (Auto) 6.1 % 7.2 % Eosinophils (%) (Auto) 0.7 % 1.6 % Basophils (%) (Auto) 0.3 % 0.5 % Neutrophils # (Auto) 8.2 TH/MM3 4.6 TH/MM3 Lymphocytes # (Auto) 1.1 TH/MM3 1.6 TH/MM3 Monocytes # (Auto) 0.6 TH/MM3 0.5 TH/MM3 Eosinophils # (Auto) 0.1 TH/MM3 0.1 TH/MM3 Basophils # (Auto) 0.0 TH/MM3 0.0 TH/MM3 CBC Comment DIFF FINAL DIFF FINAL Differential Comment Prothrombin Time 10.5 SEC Prothromb Time International 1.0 RATIO Ratio Activated Partial 22.4 SEC Thromboplast Time Sodium Level 139 MEQ/L 141 MEQ/L Potassium Level 4.0 MEQ/L 3.5 MEQ/L Chloride Level 103 MEQ/L 104 MEQ/L Carbon Dioxide Level 24.4 MEQ/L 29.4 MEQ/L Anion Gap 12 MEQ/L 8 MEQ/L Blood Urea Nitrogen 12 MG/DL 11 MG/DL Creatinine 0.98 MG/DL 0.95 MG/DL Estimat Glomerular Filtration 81 ML/MIN 84 ML/MIN Rate Random Glucose 121 MG/DL 111 MG/DL Calcium Level 9.6 MG/DL 9.1 MG/DL Magnesium Level 2.3 MG/DL 2.5 MG/DL Total Bilirubin 0.2 MG/DL 0.5 MG/DL Aspartate Amino Transf 22 U/L 21 U/L (AST/SGOT) Alanine Aminotransferase 37 U/L 43 U/L (ALT/SGPT) Alkaline Phosphatase 50 U/L 54 U/L Total Creatine Kinase 92 U/L Troponin I LESS THAN 0.02 NG/ML B-Type Natriuretic Peptide 40 PG/ML Total Protein 7.5 GM/DL 7.6 GM/DL Albumin 4.2 GM/DL 4.6 GM/DL Lipase 181 U/L Ethyl Alcohol Level LESS THAN 3 MG/DL Urine Color YELLOW Urine Turbidity CLEAR Urine pH 6.0 Urine Specific [place] 1.013 Urine Protein 30 mg/dL Urine Glucose (UA) NEG mg/dL Urine Ketones TRACE mg/dL Urine Occult Blood SMALL Urine Nitrite NEG Urine Bilirubin NEG Urine Urobilinogen LESS THAN 2.0 MG/DL Urine Leukocyte Esterase NEG Urine RBC 1 /hpf Urine WBC 2 /hpf Urine Hyaline Casts 1 /lpf Microscopic Urinalysis Comment CULT NOT INDICATED Urine Opiates Screen NEG Urine Barbiturates Screen NEG Urine Amphetamines Screen NEG Urine Benzodiazepines Screen NEG Urine Cocaine Screen NEG Urine Cannabinoids Screen POS Serum Osmolality 298 MOSM/KG Direct Bilirubin 0.1 MG/DL Indirect Bilirubin 0.4 MG/DL Ammonia 18 MCMOL/L C-Reactive Protein LESS THAN 0.29 MG/DL Vitamin B12 Level 607 PG/ML Folate 19.6 NG/ML Free Thyroxine 1.01 NG/DL Thyroid Stimulating Hormone 1.640 uIU/ML 3rd Gen Rapid Plasma Reagin NON-REACTIVE Prolactin 10.3 ng/mL Imaging Last Impressions Head CT 03/21/17139 Signed Impressions: Service Date/Time: Tuesday, March 21, 2017 01:55 - CONCLUSION: Unremarkable study. Yifan Charles MD Chest X-Ray 03/21/17139 Signed Impressions: Service Date/Time: Tuesday, March 21, 2017 02:09 - CONCLUSION: No acute cardiopulmonary disease. Yifan Charles MD Brain MRI 03/21/17 0000 Signed Impressions: Service Date/Time: Tuesday, March 21, 2017 13:46 - CONCLUSION: Negative exam. Pop Hernandez MD Objective Remarks General: NAD, AAOx3 Chest: CTA Cardiac: Regular Abd: +BS, soft ND/NT Ext: No edema A/P Problem List: (1) Seizure Status: Acute Plan: - Pt admitted after an apparent seizure at home. - It is suspected that this may be due to underlying EtOH abuse but cannot completely exclude an underlying seizure disorder. - Pt was seen by Neurology - EEG (03/21) --> A few small sharps. One sharp slow wave complex most prominent at epoch 19. No prolonged seizures were noted. No major hemisphere asymmetries are seen. The sharps were bilateral, sometimes more on the right, sometimes seen on the left, sometimes bifrontal with a very small amplitude. - MRI brain was negative. - Pt was started on Keppra IV on 03/21 and then converted to Keppra 1000mg po BID on 03/22. - TSH, free T4, b12, folate, rpr, CRP were stable. - UDS was positive for cannabinoids. - Urine Porphobilinogen is pending. - Neurology has cleared the pt for discharge. - He will continue on the Keppra 1000mg po BID - Had an extensive conversation with the pt and his father who was present for the exam today, that likely his alcohol consumption is playing a large role here and that he needs to abstain from all alcohol. - Pt will need followup with [facility] for alcohol abuse counselling. - Pt will need to followup with his PCP, Dr. Vesta Castro, on April 04 at 1:00pm. I spoke with Dr. Castro's nurse, Tori, who will start the referrals process for the Neurology followup and Mental Health followup. Assessment and Plan Patient examined. Assessment and plan formulated with Sandra Gardiner PA-C. I agree with the above. Sandra Gardiner March 22, 2017 11:57 Reed Juarez DO March 25, 2017 22:43
[2017-03-22 12:00] VITALS: BP 131/65; PULSE 62; RESP 18; TEMP 98.3; O2SAT 98
[2017-03-25 03:52] LABS: PORPHOBILINOGEN SCREEN (QUAL) 0.4 (<2.0)
== END 2017-03-22 12:55 | disposition home or self-care (01) | DRG 101 ==
LOC: NEPE 00:44 → NEDA 04:55 → NEPFCDU 07:39 → N04A 23:46
PROVIDERS: ADMIT Hospitalist; ATTEND Hospitalist
DX: R56.9 Unspecified convulsions (principal); Z87.891 Personal history of nicotine dependence; Z72.89 Other problems related to lifestyle
CPT/HCPCS: 70450; 70553; 71010; 80048; 80053; 80076; 80307; 81001; 82140; 82330; 82550; 82607; 82746; 82948; 83690; 83735; 83880; 83930; 84110; 84146; 84439; 84443; 84484; 85025; 85610; 85730; 86140; 86592; 93005; 95819; 96360; A9579; J1953; J2060; J7030